=== PATIENT | female | born 1995 | race Caucasian/White ===

== ENCOUNTER 2019-10-22 21:34 | Emergency (ER) | payer MEDICAID, OTHER ==
--- NOTE | 2019-10-22 22:55 | RAD REPORT ---
EXAM DESCRIPTION: RAD - Chest Single View - 10/22/2019 10:18 pm CLINICAL HISTORY: SOB Chest pain. COMPARISON: CHEST PA AND LAT 2 VIEW dated 02/16/2015; CHEST SINGLE VIEW dated 11/19/2014; ABDOMEN ACU TE SERIES dated 10/06/2002 FINDINGS: Portable technique limits examination quality. The lungs are grossly clear. The heart is normal in size. No displaced fractures. IMPRESSION: No acute intrathoracic process suspected.
[2019-10-22] MEDS ORDERED: ALBUTEROL 2.5 MG/3 ML NEB SOL ONE (23:22)
[2019-10-22] MEDS ORDERED: IPRATROPIUM BROM 0.5MG/2.5ML ONE (23:23)
--- NOTE | 2019-10-23 00:25 | ER ---
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 In the past few days I have not been feeling well, but tonight, I feel like my heart racing, I feel shaky and short of breath. Reports low grade fever, nausea, diarrhea and headaches in the past few days. Transition of care: patient was not received from another setting of care. Onset of symptoms was October 22, 2019. Risk Assessment: Do you want to hurt yourself or someone else? Patient reports no desire to harm self or others. Initial Sepsis Screen: Does the patient meet any 2 criteria? No. Patient's initial sepsis screen is negative. Does the patient have a suspected source of infection? No. Patient's initial sepsis screen is negative. Care prior to arrival: None. 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 - Social history:: Smoking status: Patient uses tobacco products, denies chronic smoking, but will smoke occasionally, Patient uses street drugs, marijuana. - Ebola Screening: : Patient negative for fever greater than or equal to 101.5 degrees Fahrenheit, and additional compatible Ebola Virus Disease symptoms Patient denies exposure to infectious person Patient denies travel to an Ebola-affected area in the 21 days before illness onset No symptoms or risks identified at this time. Screenin:00 Abuse screen: Denies threats or abuse. Nutritional screening: No deficits noted. jb4 Tuberculosis screening: No symptoms or risk factors identified. Fall Risk None identified. Assessment: 22:00 General: Appears in no apparent distress. uncomfortable, Behavior is calm, cooperative, jb4 appropriate for age. Pain: Denies pain. Neuro: Level of Consciousness is awake, alert, obeys commands, Oriented to person, place, time, situation. Cardiovascular: Patient's skin is warm and dry. Respiratory: Airway is patent Respiratory effort is even, unlabored, Respiratory pattern is regular, symmetrical, Breath sounds are clear bilaterally. GI: No signs and/or symptoms were reported involving the gastrointestinal system. : No signs and/or symptoms were reported regarding the genitourinary system. EENT: Throat is clear is reddened. Derm: Skin is intact, Skin is pink, warm \T\ dry. Musculoskeletal: Circulation, motion, and sensation intact. 23:00 Reassessment: Patient appears in no apparent distress at this time. Patient and/or jb4 family updated on plan of care and expected duration. Pain level reassessed. Patient is alert, oriented x 3, equal unlabored respirations, skin warm/dry/pink. 10/23 00:36 Reassessment: Patient appears in no apparent distress at this time. Patient and/or jb4 family updated on plan of care and expected duration. Pain level reassessed. Patient is alert, oriented x 3, equal unlabored respirations, skin warm/dry/pink. Patient states feeling better. Vital Signs: 10/22 21:56 BP 137 / 76; Pulse 102; Resp 17 S; Temp 98.2(O); Pulse Ox 100% on R/A; Weight 54.43 kg; ca1 Height 5 ft. 1 in. (154.94 cm) (R); Pain 6/10; 22:04 BP 113 / 69; Pulse 83; Resp 16; Temp 98.6(O); Pulse Ox 99% on R/A; mt 23:30 BP 109 / 64; Pulse 71; Resp 16; Pulse Ox 100% on R/A; jb4 10/23 00:30 BP 96 / 50; Pulse 98; Resp 18; Pulse Ox 100% on R/A; jb4 10/22 21:56 Body Mass Index 22.67 (54.43 kg, 154.94 cm) ca1 ED Course: 10/22 21:37 Patient arrived in ED. cl3 21:55 Triage completed. ca1 21:56 Arm band placed on right wrist. ca1 22:00 Patient has correct armband on for positive identification. Bed in low position. Call jb4 light in reach. Side rails up X 1. 22:05 Tremayne Johns MD is Attending Physician. tw4 22:19 Chest Single View In Process Unspecified. EDMS 23:19 Franklni Jacobs, RN is Primary Nurse. jb4 12 00:38 No provider procedures requiring assistance completed. Patient did not have IV access jb4 during this emergency room visit. Administered Medications: 10/22 23:30 Drug: DuoNeb (3:1) (2.5 mg - 0.5 mg) 3 ml Route: Nebulizer; jb4 10/23 00:00 Follow up: Response: No adverse reaction; Marked relief of symptoms jb4 Outcome: 00:24 Discharge ordered by . tw4 00:38 Discharged to home ambulatory, with significant other. jb4 00:38 Condition: stable 00:38 Discharge instructions given to patient, significant other, Instructed on discharge instructions, follow up and referral plans. medication usage, Demonstrated understanding of instructions, follow-up care, medications, Prescriptions given X 1. 00:39 Patient left the ED. jb4 Signatures: Dispatcher [employer] EDTN Franklin Jacobs, HERON RN jb4 Arlen Guerrero de Tremayne Johns MD MD tw4 Pam Michel RN RN ca1 Tae Laughlin cl3
--- NOTE | 2019-10-23 00:25 | EDPHYS ---
Physician Documentation [facility] Name: Mabel Galloway Age: 24 yrs Sex: Female : 1995 Arrival Date: 10/22/2019 Time: 21:37 Bed 15 Private MD: ED Physician Tremayne Johns HPI: 10/23 06:42 This 24 yrs old Female presents to ER via Ambulatory with complaints of tw4 Shortness Of Breath, Fever. 06:42 The patient has shortness of breath at rest. Onset: The symptoms/episode began/occurred tw4 today. Duration: The symptoms are continuous, and are unchanged since they started. The patient's shortness of breath has no apparent modifying factors. Associated signs and symptoms: The patient has no apparent associated signs or symptoms. Severity of symptoms: At their worst the symptoms were mild in the emergency department the symptoms are unchanged. The patient has not experienced similar symptoms in the past. 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 - Social history:: Smoking status: Patient uses tobacco products, denies chronic smoking, but will smoke occasionally, Patient uses street drugs, marijuana. - Ebola Screening: : Patient negative for fever greater than or equal to 101.5 degrees Fahrenheit, and additional compatible Ebola Virus Disease symptoms Patient denies exposure to infectious person Patient denies travel to an Ebola-affected area in the 21 days before illness onset No symptoms or risks identified at this time. ROS: 10/23 06:42 Constitutional: Negative for fever, chills, and weight loss, Eyes: Negative for injury, tw4 pain, redness, and discharge, Cardiovascular: Negative for chest pain, palpitations, and edema, Abdomen/GI: Negative for abdominal pain, nausea, vomiting, diarrhea, and constipation, Back: Negative for injury and pain, MS/Extremity: Negative for injury and deformity, Skin: Negative for injury, rash, and discoloration, Neuro: Negative for headache, weakness, numbness, tingling, and seizure. Respiratory: Positive for cough, shortness of breath. Exam: 06:42 Constitutional: This is a well developed, well nourished patient who is awake, alert, tw4 and in no acute distress. Head/Face: Normocephalic, atraumatic. Chest/axilla: Normal chest wall appearance and motion. Nontender with no deformity. No lesions are appreciated. Cardiovascular: Regular rate and rhythm with a normal S1 and S2. No gallops, murmurs, or rubs. Normal PMI, no JVD. No pulse deficits. 06:42 Abdomen/GI: Soft, non-tender, with normal bowel sounds. No distension or tympany. No guarding or rebound. No evidence of tenderness throughout. Back: No spinal tenderness. No costovertebral tenderness. Full range of motion. MS/ Extremity: Pulses equal, no cyanosis. Neurovascular intact. Full, normal range of motion. Neuro: Awake and alert, GCS 15, oriented to person, place, time, and situation. Cranial nerves II-XII grossly intact. Motor strength 5/5 in all extremities. Sensory grossly intact. Cerebellar exam normal. Normal gait. 06:42 Respiratory: the patient does not display signs of respiratory distress, Respirations: normal, Breath sounds: wheezing: Vital Signs: 10/22 21:56 BP 137 / 76; Pulse 102; Resp 17 S; Temp 98.2(O); Pulse Ox 100% on R/A; Weight 54.43 kg; ca1 Height 5 ft. 1 in. (154.94 cm) (R); Pain 6/10; 22:04 BP 113 / 69; Pulse 83; Resp 16; Temp 98.6(O); Pulse Ox 99% on R/A; mt 23:30 BP 109 / 64; Pulse 71; Resp 16; Pulse Ox 100% on R/A; jb4 10/23 00:30 BP 96 / 50; Pulse 98; Resp 18; Pulse Ox 100% on R/A; jb4 10/22 21:56 Body Mass Index 22.67 (54.43 kg, 154.94 cm) ca1 MDM: 10/22 22:05 Patient medically screened. tw4 10/23 06:42 Differential diagnosis: CHF exacerbation, pneumonia, Pneumothorax Psychogenic Pulmonary tw4 Embolism reactive airway disease. Data reviewed: vital signs, nurses notes. Counseling: I had a detailed discussion with the patient and/or guardian regarding: the historical points, exam findings, and any diagnostic results supporting the discharge/admit diagnosis. Medication response: albuterol nebulizer treatment(s) markedly relieved the patient's wheezing. Response to treatment: the patient's symptoms have markedly improved after treatment, and as a result, I will discharge patient. Special discussion: I discussed with the patient/guardian in detail that at this point there is no indication for admission to the hospital. It is understood, however, that if the symptoms persist or worsen the patient needs to return immediately for re-evaluation. 10/22 22:16 Order name: Chest Single View EDMS Administered Medications: 10/22 23:30 Drug: DuoNeb (3:1) (2.5 mg - 0.5 mg) 3 ml Route: Nebulizer; jb4 10/23 00:00 Follow up: Response: No adverse reaction; Marked relief of symptoms jb4 Disposition: 10/23/19 00:24 Discharged to Home. Impression: Acute bronchospasm. - Condition is Stable. - Discharge Instructions: Bronchospasm, Adult, Asthma, Acute Bronchospasm. - Prescriptions for Albuterol Sulfate 2.5 mg /3 mL (0.083 %) Inhalation Solution for Nebulization - inhale 1 unit by NEBULIZATION route every 8 hours As needed; 1 box. - Medication Reconciliation Form, Thank You Letter, Antibiotic Education, Prescription Opioid Use form. - Follow up: Private Physician; When: Upon discharge from the Emergency Department; Reason: Recheck today's complaints, Continuance of care. - Problem is new. - Symptoms have improved. Signatures: Dispatcher [employer] EDNV Franklin Jacobs RN RN jb4 Tremayne Johns MD MD tw4 Pam Michel RN RN ca1 Corrections: (The following items were deleted from the chart) 00:39 00:24 10/23/2019 00:24 Discharged to Home. Impression: Acute bronchospasm. Condition is jb4 Stable. Forms are Medication Reconciliation Form, Thank You Letter, Antibiotic Education, Prescription Opioid Use. Follow up: Private Physician; When: Upon discharge from the Emergency Department; Reason: Recheck today's complaints, Continuance of care. Problem is new. Symptoms have improved. tw4
[2019-10-23 04:17] VITALS: TEMP 98.6
[2019-10-23 04:18] VITALS: O2SAT 100
[2019-10-23 04:20] VITALS: BP 96/50
== END 2019-10-23 00:39 | disposition home or self-care (01) ==
LOC: ER 21:34
DX: J98.01 Acute bronchospasm (principal)
CPT/HCPCS: 71045; 94640; 99284

== ENCOUNTER 2021-09-17 17:59 | Emergency (ER) | payer OTHER ==
[2021-09-17 20:58] LABS: Urine Blood Negative (Negative); Urine Glucose Negative (Negative); Urine Protein Negative (Negative); Urine Specific Gravity 1.025 (1.005-1.030)
[2021-09-17 21:10] LABS: Absolute Lymphocytes (CBC) 2.1 K/uL (0.7-4.9); Basophils % 0.9 % (0-1.3); Hematocrit 38.6 % (36.0-45.0); Lymphocytes % 23.6 % (15.3-44.8); MPV 8.9 fL (7.6-11.3); RBC Red Blood Cell Count 4.48 M/uL (3.86-4.86)
[2021-09-17 21:12] LABS: Urine Specific Gravity/Preg 1.025 (1.005-1.030)
[2021-09-17] MEDS ORDERED: ONDANSETRON 4 MG/2 ML VIAL ONE (21:20)
[2021-09-17] MEDS ORDERED: NA CHLORIDE 0.9% 1,000 ML ONE (21:20)
[2021-09-17 21:35] LABS: ALT/SGPT 12 U/L (12-78); AST/SGOT 12 U/L (15-37); Alkaline Phosphatase 68 U/L (45-117); BUN Blood Urea Nitrogen 10 mg/dL (7-18); Bicarbonate 27 mmol/L (21-32); Bilirubin Direct 0.1 mg/dL (0-0.2); Bilirubin Total 0.4 mg/dL (0.2-1.0); Glucose Level 86 mg/dL (74-106); Lipase 48 U/L (73-393); Potassium 3.5 mmol/L (3.5-5.1); Protein, Total 7.4 g/dL (6.4-8.2); Sodium Level 142 mmol/L (136-145)
--- NOTE | 2021-09-17 23:08 | ER ---
Nurse's Notes [facility] Name: Mabel Galloway Age: 26 yrs Sex: Female : 1995 Arrival Date: 09/17/2021 Time: 18:03 Bed 16 Private MD: Diagnosis: Lower abdominal pain, unspecified;Nausea with vomiting, unspecified;Other ovarian cysts Presentation: 09/17 18:11 Chief complaint: Patient states: Nausea morning and night x 5 days. RLQ ABD pain ch5 yesterday. Coronavirus screen: Vaccine status: Patient reports being unvaccinated. Ebola Screen: Patient negative for fever greater than or equal to 101.5 degrees Fahrenheit, and additional compatible Ebola Virus Disease symptoms Patient denies exposure to infectious person. Patient denies travel to an Ebola-affected area in the 21 days before illness onset. No symptoms or risks identified at this time. 18:11 Method Of Arrival: Ambulatory 5 18:11 Initial Sepsis Screen: Does the patient meet any 2 criteria? No. Patient's initial ch5 sepsis screen is negative. Does the patient have a suspected source of infection? No. Patient's initial sepsis screen is negative. Risk Assessment: Do you want to hurt yourself or someone else?. Onset of symptoms was September 12, 2021. 18:11 Acuity: DAVID 3 ch5 Triage Assessment: 18:13 General: Appears in no apparent distress. Behavior is calm, cooperative. Pain: Denies ch5 pain. Complains of pain in right lower quadrant and left lower quadrant. 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 - Social history:: Smoking status: Patient reports the use of cigarette tobacco products, smokes one-half pack cigarettes per day. Screenin:30 Abuse screen: Denies threats or abuse. Denies injuries from another. Nutritional dc2 screening: No deficits noted. Tuberculosis screening: No symptoms or risk factors identified. Fall Risk None identified. No fall in past 12 months (0 pts). No secondary diagnosis (0 pts). No IV (0 pts). Ambulatory Aid- None/Bed Rest/Nurse Assist (0 pts). Gait- Normal/Bed Rest/Wheelchair (0 pts) Mental Status- Oriented to own ability (0 pts). Total Alvarado Fall Scale indicates No Risk (0-24 pts). Assessment: 20:30 General: Appears in no apparent distress. comfortable, slender, well groomed, well dc2 developed, Behavior is calm, cooperative. Pain: Denies pain. Neuro: No deficits noted. Level of Consciousness is awake, alert, obeys commands, Oriented to person, place, time, situation. Cardiovascular: Denies chest pain, nausea, shortness of breath. Respiratory: No deficits noted. Breath sounds are clear bilaterally. GI: Bowel sounds present X 4 quads. Reports nausea, States will have pain to both lower quadrants " once in a while" Denies pain at this time. Patient currently denies vomiting. 20:30 : No deficits noted. No signs and/or symptoms were reported regarding the dc2 genitourinary system. Urine is clear. Derm: No deficits noted. No signs and/or symptoms reported regarding the dermatologic system. Musculoskeletal: No deficits noted. No signs and/or symptoms reported regarding the musculoskeletal system. Vital Signs: 18:11 BP 143 / 92; Pulse 93; Resp 18; Temp 98.4; Pulse Ox 100% ; Weight 58.97 kg; Height 5 ch5 ft. 1 in. (154.94 cm); Pain 0/10; 20:30 BP 117 / 77; Pulse 79; Resp 79; Temp 97.6(O); Pulse Ox 100% ; Pain 0/10; dc2 21:30 BP 111 / 72; Pulse 76; Resp 16; Pulse Ox 100% ; Pain 0/10; dc2 22:30 BP 122 / 69; Pulse 75; Resp 17; Pulse Ox 99% ; Pain 0/10; dc2 23:00 BP 114 / 68; Pulse 71; Resp 16; Temp 97.5; Pulse Ox 100% ; Pain 0/10; dc2 18:11 Body Mass Index 24.56 (58.97 kg, 154.94 cm) 5 ED Course: 18:03 Patient arrived in ED. ds1 18:13 Triage completed. ch5 18:13 Arm band placed on right wrist. ch5 19:59 Humberto Gil MD is Attending Physician. 7 20:30 Patient has correct armband on for positive identification. Placed in gown. Bed in low dc2 position. Call light in reach. Side rails up X 1. clinical research monitor on. Pulse ox on. NIBP on. Door closed. Lights dimmed. 20:42 Susu Desai, HERON is Primary Nurse. dc2 21:00 Basic Metabolic Panel Sent. dc2 21:00 CBC with Diff Sent. dc2 21:00 Hepatic Function Sent. dc2 21:01 Lipase Sent. dc2 21:09 Urine --Ancillary (enter results) Sent. dc2 21:13 No provider procedures requiring assistance completed. dc2 21:[address] dc2 22:04 CT Abd/Pelvis - IV Contrast Only In Process Unspecified. EDMS 22:06 [address] back from [address]. dc2 23:09 Yanique Ludwig MD is Referral Physician. [facility] 23:15 IV discontinued, intact, bleeding controlled, No redness/swelling at site. Pressure dc2 dressing applied. Administered Medications: 20:50 Drug: NS 0.9% 1000 ml Route: IV; Rate: 1000 ml; Site: left antecubital; dc2 22:00 Follow up: IV Status: Completed infusion; IV Intake: 1000ml dc2 20:51 Drug: Zofran (Ondansetron) 4 mg Route: IVP; Site: left antecubital; dc2 21:30 Follow up: Response: Nausea is decreased dc2 Intake: 22:00 IV: 1000ml; Total: 1000ml. dc2 Outcome: 23:07 Discharge ordered by . [facility] 23:16 Discharged to home ambulatory. dc2 23:16 Condition: stable 23:16 Discharge instructions given to patient, Instructed on discharge instructions, follow up and referral plans. Demonstrated understanding of instructions, follow-up care, medications, Prescriptions given X 2. 23:49 Patient left the ED. dc2 Signatures: Dispatcher [employer] [facility] Margaret Haddad ds1 Humberto Gil MD MD [facility] Thierno Thomas RN RN 5 Susu Desai RN RN dc2
--- NOTE | 2021-09-17 23:08 | EDPHYS ---
Physician Documentation [facility] Name: Mabel Galloway Age: 26 yrs Sex: Female : 1995 Arrival Date: 09/17/2021 Time: 18:03 Bed 16 Private MD: ED Physician Humberto Gil HPI: 09/17 20:11 This 26 yrs old Female presents to ER via Ambulatory with complaints of mh7 Nausea. 20:11 The patient presents to the emergency department with nausea, that is moderate, mh7 vomiting, that is intermittent, described as clear fluid, abdominal pain, of the right lower quadrant and left lower quadrant, described as intermittent, vague,\E\ waxing and waning, and does not radiate. Onset: The symptoms/episode began/occurred 5 day(s) ago. Possible causes: unknown. The symptoms are aggravated by food , The symptoms are alleviated by nothing. Associated signs and symptoms: Pertinent negatives: anorexia, belching, constipation, diarrhea, dysuria, fever, flatulence, GI bleeding, hematuria, vaginal discharge. Severity of symptoms: At their worst the symptoms were moderate 3 day(s) ago, in the emergency department the symptoms have improved moderately. 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 - Social history:: Smoking status: Patient reports the use of cigarette tobacco products, smokes one-half pack cigarettes per day. ROS: 20:11 Constitutional: Negative for fever, chills, and weight loss, Eyes: Negative for injury, mh7 pain, redness, and discharge, ENT: Negative for injury, pain, and discharge, Neck: Negative for injury, pain, and swelling, Cardiovascular: Negative for chest pain, palpitations, and edema, Respiratory: Negative for shortness of breath, cough, wheezing, and pleuritic chest pain, Back: Negative for injury and pain, : Negative for injury, bleeding, discharge, and swelling, MS/Extremity: Negative for injury and deformity, Skin: Negative for injury, rash, and discoloration, Neuro: Negative for headache, weakness, numbness, tingling, and seizure, Psych: Negative for depression, anxiety, suicide ideation, homicidal ideation, and hallucinations, Allergy/Immunology: Negative for hives, rash, and allergies, Endocrine: Negative for neck swelling, polydipsia, polyuria, polyphagia, and marked weight changes, Hematologic/Lymphatic: Negative for swollen nodes, abnormal bleeding, and unusual bruising. Exam: 20:11 Constitutional: This is a well developed, well nourished patient who is awake, alert, mh7 and in no acute distress. Head/Face: Normocephalic, atraumatic. Eyes: Pupils equal round and reactive to light, extra-ocular motions intact. Lids and lashes normal. Conjunctiva and sclera are non-icteric and not injected. Cornea within normal limits. Periorbital areas with no swelling, redness, or edema. Neck: Trachea midline, no thyromegaly or masses palpated, and no cervical lymphadenopathy. Supple, full range of motion without nuchal rigidity, or vertebral point tenderness. No Meningismus. Chest/axilla: Normal chest wall appearance and motion. Nontender with no deformity. No lesions are appreciated. Cardiovascular: Regular rate and rhythm with a normal S1 and S2. No gallops, murmurs, or rubs. Normal PMI, no JVD. No pulse deficits. Respiratory: Lungs have equal breath sounds bilaterally, clear to auscultation and percussion. No rales, rhonchi or wheezes noted. No increased work of breathing, no retractions or nasal flaring. Back: No spinal tenderness. No costovertebral tenderness. Full range of motion. Skin: Warm, dry with normal turgor. Normal color with no rashes, no lesions, and no evidence of cellulitis. MS/ Extremity: Pulses equal, no cyanosis. Neurovascular intact. Full, normal range of motion. Neuro: Awake and alert, GCS 15, oriented to person, place, time, and situation. Cranial nerves II-XII grossly intact. Motor strength 5/5 in all extremities. Sensory grossly intact. Cerebellar exam normal. Normal gait. Psych: Awake, alert, with orientation to person, place and time. Behavior, mood, and affect are within normal limits. 20:11 Abdomen/GI: Inspection: abdomen appears normal, Bowel sounds: normal, in all quadrants, [facility] Palpation: mild abdominal tenderness, in the right lower quadrant and left lower quadrant, mass, is not appreciated, rebound tenderness, is not appreciated, voluntary guarding, is not appreciated, involuntary guarding, is not appreciated, no appreciated organomegaly, Rectal exam: the exam is deferred, because of patient request, Indicators: McBurney's point is not tender, Guadalupe's sign is negative, Rovsing's sign is negative, Obturator sign is negative, Psoas sign is negative, Liver: no appreciated palpable abnormalities, Hernia: not appreciated. 20:11 : CVA tenderness, is absent, Pelvic Exam: The exam is refused by the [facility] patient/guardian. The risks and consequences are understood by the patient. Vital Signs: 18:11 BP 143 / 92; Pulse 93; Resp 18; Temp 98.4; Pulse Ox 100% ; Weight 58.97 kg; Height 5 ch5 ft. 1 in. (154.94 cm); Pain 0/10; 20:30 BP 117 / 77; Pulse 79; Resp 79; Temp 97.6(O); Pulse Ox 100% ; Pain 0/10; dc2 21:30 BP 111 / 72; Pulse 76; Resp 16; Pulse Ox 100% ; Pain 0/10; dc2 22:30 BP 122 / 69; Pulse 75; Resp 17; Pulse Ox 99% ; Pain 0/10; dc2 23:00 BP 114 / 68; Pulse 71; Resp 16; Temp 97.5; Pulse Ox 100% ; Pain 0/10; dc2 18:11 Body Mass Index 24.56 (58.97 kg, 154.94 cm) [facility] MDM: 23:05 Differential diagnosis: Nonspecific abd pain, gastritis, appendicitis, diverticulitis. [facility] Data reviewed: vital signs, nurses notes, lab test result(s), CBC, electrolytes, urinalysis, UPT: negative radiologic studies, CT scan. Data interpreted: Pulse oximetry: on room air is 100 %. Interpretation: normal. Counseling: I had a detailed discussion with the patient and/or guardian regarding: the historical points, exam findings, and any diagnostic results supporting the discharge/admit diagnosis, lab results, radiology results, the need for outpatient follow up, to return to the emergency department if symptoms worsen or persist or if there are any questions or concerns that arise at home. Response to treatment: the patient's symptoms have resolved after treatment, the patient's blood pressure is in an acceptable range, mental status has returned to baseline, the patient no longer shows bradycardia, the patient is not short of breath, the patient is not tachycardic, the patient's pain is gone, the patient's temperature has normalized, the patient is now symptom free, patient is well hydrated. 23:07 Patient medically screened. [facility] 09/17 20:09 Order name: Basic Metabolic Panel; Complete Time: 22:53 [facility] 09/17 20:09 Order name: CBC with Diff; Complete Time: 21:26 [facility] 09/17 20:09 Order name: Hepatic Function; Complete Time: 22:53 [facility] 09/17 20:09 Order name: Lipase; Complete Time: 22:53 [facility] 09/17 20:58 Order name: Urine Dipstick-Ancillary; Complete Time: 21:26 [facility] 09/17 20:59 Order name: Urine --Ancillary (enter results) tt3 09/17 20:09 Order name: IV Saline Lock; Complete Time: 21:00 [facility] 09/17 20:09 Order name: Labs collected and sent; Complete Time: 21:00 [facility] 09/17 20:09 Order name: Urine Dipstick-Ancillary (obtain specimen); Complete Time: 20:58 [facility] 09/17 20:09 Order name: Urine Test (obtain specimen); Complete Time: 20:58 [facility] 09/17 20:59 Order name: Urine --Ancillary; Complete Time: 21:26 [facility] 09/17 21:27 Order name: CT Abd/Pelvis - IV Contrast Only [facility] Administered Medications: 20:50 Drug: NS 0.9% 1000 ml Route: IV; Rate: 1000 ml; Site: left antecubital; dc2 22:00 Follow up: IV Status: Completed infusion; IV Intake: 1000ml dc2 20:51 Drug: Zofran (Ondansetron) 4 mg Route: IVP; Site: left antecubital; dc2 21:30 Follow up: Response: Nausea is decreased dc2 Disposition Summary: 09/17/21 23:07 Discharge Ordered Location: Home [facility] Problem: new [facility] Symptoms: have improved [facility] Condition: Stable [facility] Diagnosis - Lower abdominal pain, unspecified 7 - Nausea with vomiting, unspecified 7 - Other ovarian cysts [facility] Followup: [facility] - With: Private Physician - When: 1 - 2 days - Reason: Worsening of condition, Recheck today's complaints, Continuance of care, Re-evaluation by your physician Followup: [facility] - With: Yanique Ludwig MD - When: 2 - 3 days - Reason: Worsening of condition, Recheck today's complaints Discharge Instructions: - Discharge Summary Sheet [facility] - Nausea and Vomiting, Adult [facility] - Abdominal Pain, Adult, Bkns-ti-[id number] [facility] Forms: - Medication Reconciliation Form [facility] - Thank You Letter [facility] - Antibiotic Education [facility] - Prescription Opioid Use [facility] Prescriptions: - ondansetron 4 mg Oral tablet,disintegrating - place 1 tablet by TRANSLINGUAL route every 8 hours As needed; 10 tablet; [facility] Refills: 0, Product Selection Permitted - dicyclomine 10 mg Oral Capsule - take 1 capsule by ORAL route 4 times per day As needed; 20 capsule; Refills: 0, 7 Product Selection Permitted Signatures: Dispatcher [employer] Humberto Varghese MD MD 7 Thierno Thomas RN RN ch5 Susu Desai RN RN dc2
[2021-09-18 00:06] VITALS: BP 114/68; TEMP 97.5; O2SAT 100
--- NOTE | 2021-09-18 12:32 | RAD REPORT ---
EXAM DESCRIPTION: CT - Abdomen Pelvis W Contrast - 09/18/2021 6:33 am CLINICAL HISTORY: The patient is 26 years old and is Female; Abd pain;Nausea / vomiting TECHNIQUE: Axial computed tomography images of the abdomen and pelvis with intravenous contrast. S agittal and coronal reformatted images were created and reviewed. This CT exam was performed using one or more of the following dose reduction techniques: automated exposure control, adjustment of t he mA and/or kV according to patient size, and/or use of iterative reconstruction technique. DLP: 873 mGy*cm COMPARISON: None. FINDINGS: LUNG BASES: Lung bases are clear. HEART: Visualized heart is normal. ABDOMEN: LIVER: Unremarkable. No mass. GALLBLADDER AND BILE DUCTS: Unremarkable. No calcified stones. No ductal dilation. PANCREAS: Unremarkable. No mass. No ductal dilation. SPLEEN: Unremarkable. No splenomegaly. ADRENALS: Unremarkable. No mass. KIDNEYS AND URETERS: Unremarkable. No solid mass. No hydronephrosis. STOMACH AND BOWEL: Unremarkable. No obstruction. No mucosal thickening. PELVIS: APPENDIX: The appendix is seen and is within normal limits. BLADDER: Unremarkable. No mass. REPRODUCTIVE: Right ovarian cyst measuring 1.4 cm. Small amount of endometrial fluid. ABDOMEN and PELVIS: INTRAPERITONEAL SPACE: Unremarkable. No free air. No significant fluid collection. BONES/JOINTS: No acute fracture. No dislocation. SOFT TISSUES: Small fat-containing lumbrical hernia. VASCULATURE: Unremarkable. No abdominal aortic aneurysm. LYMPH NODES: Unremarkable. No enlarged lymph nodes. IMPRESSION: 1. No acute abdominal or pelvic abnormity. 2. Right ovarian cyst measuring 1.4 cm. Small amount of endometrial fluid. No follow-up imaging is recommended. Reference: US recommendations based on Radiology 2010 Jul;256(3):943-54; CT/MR recommendations based on J Am Linnea Radiol 2013;10:675-681. Electronically signed by: Manolo Cano DO 09/17/2021 10:33 PM CDT Due to temporary technical issues with the PACS/Fluency reporting system, reports are being signed by the in house radiologists without review as a courtesy to insure prompt reporting. The interpreting radiologist is fully responsible for the content of the report.
== END 2021-09-17 23:49 | disposition home or self-care (01) ==
LOC: ER 17:59
DX: N83.299 Other ovarian cyst, unspecified side (principal); R11.2 Nausea with vomiting, unspecified; F17.210 Nicotine dependence, cigarettes, uncomplicated
CPT/HCPCS: 96361; 85025; 80048; 36415; 81025; 80076; 81003; 83690; 74177; 96374; 99285; Q9967; J7030; J2405

== ENCOUNTER 2021-12-31 11:14 | Emergency (ER) | payer OTHER ==
--- OUTSIDE RECORDS SUMMARY | 2021-12-31 11:33 | XMS REPORT | Continuity of Care Document ---
:1995 Author Organization [facility] t Address [address] [place] [address] Dr. Plasencia [address] [place] [id number] Care Team Providers Name Role Phone Unavailable Unavailable Unavailable Problems This patient has no known problems. Allergies, Adverse Reactions, Alerts This patient has no known allergies or adverse reactions. Medications This patient has no known medications. Procedures This patient has no known procedures. Results This patient has no known results.
[2021-12-31] MEDS ORDERED: LIDOCAINE 2% W/EPI 1:200,000 MPF 20 ML VIAL IM ONE (11:46)
[2021-12-31] MEDS ORDERED: BUPIVACAINE 0.5% PF 10 ML VIAL ONE (11:46)
[2021-12-31] MEDS ORDERED: LIDOCAINE 1% W/EPI 1:100,000 MDV 50 ML VIAL ONE (11:48)
--- NOTE | 2021-12-31 12:33 | EDPHYS ---
Physician Documentation [facility] Name: Mabel Galloway Age: 26 yrs Sex: Female : 1995 Arrival Date: 12/31/2021 Time: 11:17 Bed 6 Private MD: ED Physician Pricilla Mcclain HPI: 12/31 11:45 This 26 yrs old Female presents to ER via Ambulatory with complaints of Cyst. cp 11:45 The patient presents with an abscess of the left arm axilla. cp 11:45 Description: fluctuant. cp 11:45 Onset: The symptoms/episode began/occurred gradually, and became worse last night. cp 11:45 Possible cause(s): unknown. Associated signs and symptoms: Pertinent negatives: cp discharge, drainage, fever. 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 Flu vaccine is not up to date. - Social history:: Smoking status: Patient reports the use of cigarette tobacco products, smokes one-half pack cigarettes per day. ROS: 11:50 Constitutional: Negative for body aches, chills, fever, poor PO intake. cp 11:50 Cardiovascular: Negative for chest pain. cp 11:50 Respiratory: Negative for cough, shortness of breath, wheezing. 11:50 Abdomen/GI: Negative for abdominal pain. 11:50 Skin: Positive for abscess, of the left arm axilla. 11:50 All other systems are negative. Exam: 11:55 Constitutional: The patient appears in no acute distress, alert, awake, comfortable, cp non-toxic, well developed, well nourished. 11:55 Head/Face: Normocephalic, atraumatic. cp 11:55 Chest/axilla: Axilla: abscess, that is small, of the left axilla, with tenderness, mils erythema. 11:55 Cardiovascular: Rate: tachycardic. 11:55 Respiratory: the patient does not display signs of respiratory distress, Respirations: normal, no use of accessory muscles, no retractions, labored breathing, is not present. 11:55 Abdomen/GI: Exam negative for discomfort, distension, guarding, Inspection: abdomen appears normal. Vital Signs: 11:26 BP 121 / 81; Pulse 106; Resp 17; Temp 98.3; Pulse Ox 100% ; Weight 58.97 kg; Height 5 ap3 ft. 1 in. (154.94 cm); Pain 5/10; 11:26 Body Mass Index 24.56 (58.97 kg, 154.94 cm) ap3 Procedures: 12:29 I \T\ D: Incision and drainage was performed for an abscess of the left arm axilla cp Prepped with Betadine, Anesthetized with 6 ccs of 50/50 mixture 1% lidocaine with epi and 0.5% marcaine. Incised with #11 blade. Drained small amount purulent fluid. Packed with iodoform gauze, Dressing: sterile 4x4 gauze, the patient tolerated the procedure well. MDM: 11:47 Patient medically screened. cp 12:00 Differential diagnosis: abscess, allergic reaction, cellulitis, insect bite. cp 12:31 Data reviewed: vital signs, nurses notes, and as a result, I will discharge patient. cp Response to treatment: the patient's symptoms have markedly improved after treatment, and as a result, I will discharge patient. 12/31 11:41 Order name: I\T\D Setup; Complete Time: 11:41 cp 12/31 12:29 Order name: Wound dressing; Complete Time: 12:30 cp Administered Medications: 12:12 Drug: Lidocaine-Epinephrine -1%: (1:100,000) 10 ml Volume: 20 ml; Route: Infiltration; ll1 12:34 Follow up: Response: No adverse reaction ll1 12:12 Drug: Marcaine (bupivacaine) (0.5 %) 5 ml Volume: 10 ml; Route: Infiltration; ll1 12:34 Follow up: Response: No adverse reaction ll1 Disposition Summary: 12/31/21 12:32 Discharge Ordered Location: Home cp Problem: new cp Symptoms: have improved cp Condition: Stable cp Diagnosis - Cutaneous abscess of left axilla - left arm cp Followup: cp - With: Private Physician - When: 1 - 2 days - Reason: Worsening of condition Discharge Instructions: - Discharge Summary Sheet cp - Skin Abscess cp - Incision and Drainage cp Forms: - Medication Reconciliation Form cp - Thank You Letter cp - Antibiotic Education cp - Prescription Opioid Use cp Prescriptions: - Bactrim DS 800-160 mg Oral Tablet - take 1 tablet by ORAL route every 12 hours for 7 days; 14 tablet; Refills: 0, cp Product Selection Permitted - Ibuprofen 600 mg Oral Tablet - take 1 tablet by ORAL route every 8 hours As needed take with food; 30 tablet; cp Refills: 0, Product Selection Permitted Addendum: 01/01/2022 12:49 Co-signature as Attending Physician, Pricilla Mcclain MD I agree with the assessment and s p3 plan of care. Signatures: Tony Hodges PA PA cp Prokisch, Amanda, RN RN ap3 Chris Laughlin RN RN ll1 Pricilla Mcclain MD MD sp3
--- NOTE | 2021-12-31 12:33 | ER ---
Nurse's Notes [facility] Name: Mabel Galloway Age: 26 yrs Sex: Female : 1995 Arrival Date: 12/31/2021 Time: 11:17 Bed 6 Private MD: Diagnosis: Cutaneous abscess of left axilla-left arm Presentation: 12/31 11:26 Chief complaint: Patient states: she has a cyst under her left arm. It has been there ap3 for several days, however last night it started to get to be painful, and it interrupted her sleep. Pt reports the size of the cyst has increased. Coronavirus screen: At this time, the client does not indicate any symptoms associated with coronavirus-19. Ebola Screen: No symptoms or risks identified at this time. Initial Sepsis Screen: Does the patient meet any 2 criteria? No. Patient's initial sepsis screen is negative. Does the patient have a suspected source of infection? No. Patient's initial sepsis screen is negative. Risk Assessment: Do you want to hurt yourself or someone else? Patient reports no desire to harm self or others. Onset of symptoms was December 30, 2021. 11:26 Method Of Arrival: Ambulatory ap3 11:26 Acuity: DAVID 4 ap3 Triage Assessment: 11:29 General: Appears in no apparent distress. comfortable, Behavior is calm, cooperative, ap3 appropriate for age. Pain: Complains of pain in left axilla Pain currently is 5 out of 10 on a pain scale. Neuro: Level of Consciousness is awake, alert, obeys commands, Oriented to person, place, time, situation, Diversity Intern are equal bilaterally Moves all extremities. Gait is steady, Speech is normal. Respiratory: Airway is patent Respiratory effort is even, unlabored, Respiratory pattern is regular, symmetrical. Derm: Abscess located on left axilla is half dollar sized, has no drainage, is red, is raised. 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 Flu vaccine is not up to date. - Social history:: Smoking status: Patient reports the use of cigarette tobacco products, smokes one-half pack cigarettes per day. Screenin:30 Abuse screen: Denies threats or abuse. Nutritional screening: No deficits noted. ap3 Tuberculosis screening: No symptoms or risk factors identified. Fall Risk No fall in past 12 months (0 pts). Assessment: 11:36 General: Appears in no apparent distress. comfortable, well developed, well nourished, lr4 Behavior is calm, cooperative. Pain: Complains of pain in left axilla Pain currently is 5 out of 10 on a pain scale. Quality of pain is described as aching, throbbing, Pain began gradually, Is chronic, Noted to be Also complains of no other associated symptoms. Current management. Derm: Abscess located on left axilla. 12:35 Reassessment: Patient appears in no apparent distress at this time. No changes from ll1 previously documented assessment. Patient and/or family updated on plan of care and expected duration. Pain level reassessed. Patient is alert, oriented x 3, equal unlabored respirations, skin warm/dry/pink. Patient states feeling better. Patient states symptoms have improved. Vital Signs: 11:26 BP 121 / 81; Pulse 106; Resp 17; Temp 98.3; Pulse Ox 100% ; Weight 58.97 kg; Height 5 ap3 ft. 1 in. (154.94 cm); Pain 5/10; 11:26 Body Mass Index 24.56 (58.97 kg, 154.94 cm) ap3 ED Course: 11:17 Patient arrived in ED. as 11:28 Triage completed. ap3 11:30 Arm band placed on left wrist. ap3 11:31 Tony Hodges PA is PHCP. cp 11:31 Pricilla Mcclain MD is Attending Physician. cp 11:33 Chris Laughiln, HERON is Primary Nurse. ll1 11:33 Patient placed in an exam room, on a stretcher. ll1 11:33 Patient has correct armband on for positive identification. Bed in low position. Call ll1 light in reach. Side rails up X 1. Cardiac monitoring not applicable on this patient. 12:30 Dressings: 4X4s X 1; left axilla secured with paper tape. Tolerated procedure well. ll1 12:41 No provider procedures requiring assistance completed. Patient did not have IV access ll1 during this emergency room visit. Administered Medications: 12:12 Drug: Lidocaine-Epinephrine -1%: (1:100,000) 10 ml Volume: 20 ml; Route: Infiltration; ll1 12:34 Follow up: Response: No adverse reaction ll1 12:12 Drug: Marcaine (bupivacaine) (0.5 %) 5 ml Volume: 10 ml; Route: Infiltration; ll1 12:34 Follow up: Response: No adverse reaction ll1 Outcome: 12:32 Discharge ordered by . aisha 12:41 Discharged to home ambulatory. ll1 12:41 Condition: stable 12:41 Discharge instructions given to patient, Instructed on discharge instructions, follow up and referral plans. medication usage, wound care, Demonstrated understanding of instructions, follow-up care, medications, wound care, Prescriptions given X 2. 12:42 Patient left the ED. ll1 Signatures: Jody Orellana Corey, PA PA cp Prokisch, Amanda, RN RN ap3 Chris Laughlin RN RN ll1 Fartun Turpin RN RN lr4
[2021-12-31 12:48] VITALS: BP 121/81; TEMP 98.3; O2SAT 100
== END 2021-12-31 12:42 | disposition home or self-care (01) ==
LOC: ER 11:14
PROC: 0H9CXZZ Drainage of Left Upper Arm Skin, External Approach (ICD-10-PCS; principal; 2021-12-31)
DX: L02.412 Cutaneous abscess of left axilla (principal); F17.210 Nicotine dependence, cigarettes, uncomplicated
CPT/HCPCS: 99283

== ENCOUNTER 2022-12-27 13:59 | Emergency (ER) | payer OTHER ==
--- OUTSIDE RECORDS SUMMARY | 2022-12-27 14:07 | XMS REPORT | Continuity of Care Document ---
:[address] [facility] t Address [address] [place] [address] Care Team Providers Name Role Phone HOMA CORLEY Primary Care Physician Unavailable Nurse, [facility] Attending Clinician Unavailable Alin Chapa MD Attending Clinician ALIN CHAPA Attending Clinician Unavailable Doctor Unassigned, [place] Attending Clinician Unavailable Lyn Basilio Attending Clinician Payers Payer Name Policy Type Policy Number Effective Date Expiration Date S ource Problems Condition Condition Condition Status Onset Resolution Last Treating Co mments Source Name Details Category Date Date Treatment Clinician Date Abscess of Abscess of Disease Active 2010-11 U nivers breast, breast[place] 0[place] [address] [place] [address] Pneumonia Pneumonia Disease Active 2010-11 Uni vers 0-16 ity of 00:00: [address] Allergies, Adverse Reactions, Alerts Allergy Allergy Status Severity Reaction(s) Onset Inactive Treating Comm ents Source Name Type Date Date Clinician NO KNOWN Drug Active Univers ALLERGIE Class ity of S [facility] Social History Social Habit Start Date Stop Date Quantity Comments Source Exposure to 2022-06-28 2022-07-08 Not sure University SARS-CoV-2 00:00:00 08:12:00 [facility] (event) Branch Alcohol intake 2022-07-08 2022-07-08 Current drinker Unive rsity of 00:00:00 00:00:00 of alcohol [facility] ([facility]) Branch Tobacco use and 2022-06-24 2022-06-24 Smokeless tobacco Un iversity of exposure 00:00:00 00:00:00 non-user [facility] History of 2019-10-22 Cigarette Smoker Universi ty of tobacco use 00:00:00 [facility] Sex [birth year] Universit y of 00:00:00 00:00:00 [facility] Smoking Status Start Date Stop Date Source Smokes tobacco daily 2022-06-24 00:00:00 [facility] ity of [facility] Medications Ordered Filled Start Stop Current Ordering Indication Dosage Frequency Signature Comments Components Source Medication Medication Date Date Medication? Clinician (SIG) Name Name HYDROcodone Yes 4647 1{tbl} Take 1 Un yariel -acetaminop 8-18 tablet by ity of hen (NORCO) 00:00: mouth [place] 5-325 mg 00 every 6 Medical tablet (six) Branch hours as needed for Pain (scale 7-10) for up to 7 doses. Indication s: acute pain HYDROcodone 2021- Yes 4647 1{tbl} Take 1 Un yariel -acetaminop 8-18 tablet by ity of hen (NORCO) 00:00: mouth [place] 5-325 mg 00 every 6 Medical tablet (six) Branch hours as needed for Pain (scale 7-10) for up to 7 doses. Indication s: acute pain HYDROcodone 2021-0 Yes 4647 1{tbl} Take 1 Un yariel -acetaminop 8-18 tablet by ity of hen (NORCO) 00:00: mouth [place] 5-325 mg 00 every 6 Medical tablet (six) Branch hours as needed for Pain (scale 7-10) for up to 7 doses. Indication s: acute pain clindamycin 2021-0 Yes [id number] Apply to Univers 1 % gel 8-04 area(s) 2 ity of 00:00: (two) [place] 00 times Medical daily. Branch clindamycin 2021-0 Yes [id number] Apply to Univers 1 % gel 8-04 area(s) 2 ity of 00:00: (two) [place] 00 times Medical daily. Branch clindamycin 2021-0 Yes [id number] Apply to Univers 1 % gel 8-04 area(s) 2 ity of 00:00: (two) [place] 00 times Medical daily. Branch valACYclovi 2021-0 Yes 500mg Take 500 U nivers r 500 mg 7-09 mg by ity of tablet 00:00: mouth in [place] 00 the Medical morning. Branch valACYclovi 2021-0 Yes 500mg Take 500 U nivers r 500 mg 7-09 mg by ity of tablet 00:00: mouth in [place] 00 the Medical morning. Branch valACYclovi 2021-0 Yes 500mg Take 500 U nivers r 500 mg 7-09 mg by ity of tablet 00:00: mouth in [place] 00 the Medical morning. Branch Vital Signs Vital Name Observation Time Observation Value Comments Source Systolic blood 2022-07-08 13:25:00 125 mm[Hg] Univer sity of pressure [facility] Diastolic blood 2022-07-08 13:25:00 79 mm[Hg] Unive rsity of [facility] Heart rate 2022-07-08 13:25:00 104 /min [facility] Respiratory rate 2022-07-08 13:25:00 18 /min [facility] Body height 2022-07-08 13:25:00 154.9 cm [facility] Body weight 2022-07-08 13:25:00 65.318 kg [facility] BMI 2022-07-08 13:25:00 27.21 kg/m2 [facility] Oxygen saturation in 2022-07-08 13:25:00 99 /min [facility] Arterial blood by [facility] Pulse oximetry Branch Procedures Procedure Date / Time Performed Performing Clinician [facility] e DISCLOSURE AND 2022-07-08 05:01:00 Doctor Unassigned, No Univer sity of [place] CONSENT, MEDICAL AND Name Medical [facility] SURGICAL PROCEDURES Encounters Start End Encounter Admission Attending Care Care Encounter Source Date/Time Date/Time Type Type Clinicians Facility Department ID 2022-07-22 2022-07-22 Nurse Nurse, [facility] [id number] [facility] 11:15:00 11:45:00 Visit Alin Chapa [id number] Dor[place] [id number] [place] FUCHS [id number] [address] 2022-07-22 2022-07-22 [facility] [id number] Univers 11:15:00 11:15:00 ALIN siegel [facility] 2022-07-22 2022-07-22 [facility] [id number] Univers 11:15:00 11:15:00 ALIN siegel [facility] 2022-07-08 2022-07-08 Office [facility] [id number] Univers 08:00:00 09:41:31 Visit Alin LARRYARIES [id number] i [place] [id number] [address] 2022-07-08 2022-07-08 [facility] [id number] Univers 08:00:00 09:41:31 ALIN siegel [facility] 2022-07-08 2022-07-08 [facility] [id number] Univers 08:00:00 08:00:00 ALIN siegel [facility] 2022-07-08 2022-07-08 Orders Doctor MARCELINA [id number] Univers 00:00:00 00:00:00 Only Unassigned, ALFREDO 350.1.13.10 ity of [place] [facility] 4.2.7.2.686 [place] as [id number] [address] 2022-06-24 2022-06-24 [facility] [id number] Univers 10:00:00 10:41:19 ALIN siegel [facility] 2022-06-24 2022-06-24 Office [facility] [id number] Univers 10:00:00 10:41:19 Visit Alin LARRYARIES 350.1.13.10 i [place] [id number] [address] 2022-06-24 2022-06-24 Orders Doctor MARCELINA [id number] Univers 00:00:00 00:00:00 Only Unassigned, ALFREDO 350.1.13.10 ity of [place] HOSPITAL 4.2.7.2.686 Charly as [id number] [facility] 009 Branch 2022-06-16 2022-06-16 Letter MARCELINA Basilio [id number] Univers 00:00:00 00:00:00 (Out) Lyn FUENTES 350.1.13.10 it y of HOSPITAL 4.2.7.2.686 [place] as [id number] [facility] 043 Branch 2022-06-11 2022-06-11 Orders Doctor MARCELINA [id number] Univers 00:00:00 00:00:00 Only Unassigned, ALFREDO 350.1.13.10 ity of [place] HOSPITAL 4.2.7.2.686 Ch[place] as [id number] [address] Results Test Description Test Time Test Comments Results Result Comments Source CT/NG, NAAT, URINE 2022-07-02 21:51:00 Test Item Value Reference Range Interpretation Comme nts GONORRHEA, NAAT NEGATIVE NEGATIVE IMPORT ANT NOTICE: SEE ANNOUNCEMENT AT (test code = [email or web address].[employer]/PickPark Note: 32039) Assay methodolo gy is nucleic acid amplification by transcriptio n mediated amplification (TMA) utilizing the A ptima Combo 2 Assay. CHLAMYDIA, NAAT NEGATIVE NEGATIVE IMPORT ANT NOTICE: SEE ANNOUNCEMENT AT (test code = [email or web address]://www.[employer] Note: 92551) Assay methodolo gy is nucleic acid amplification by transcriptio n mediated amplification (TMA) utilizing the A ptima Combo 2 Assay. UNLESS OTHERWISE INDIC ATED, ALL TESTING PERFORMED [facility] [address] [place] [address] CREDIT RATING INSPECTOR: ANAI REAL M.D. CLIA NUMBER [id number] [place] [id number] VAGINAL PATHOGENS DNA [id number] 14:10:07 Test Item Value Reference Range Interpretation Comments JONATHAN SPECIES (test code = ) NEGATIVE NEGATIVE G. VAGINALIS (test code = ) POSITIVE NEGATIVE A T. VAGINALIS (test code = ) NEGATIVE NEGATIVE HIV 1/2 4TH GEN, RFLX [id number] 06:55:51 Test Item Value Reference Range Interpretation Comments HIV 1/2 4TH GEN, RFLX CONF (test NON-REACTIVE NON-REACTIVE code = 3514) HEPATITIS PANEL, [id number] 06:55:51 Test Item Value Reference Range Interpretation Comments HEPATITIS A IgM (test NON-REACTIVE NON-REACTIVE code = 39829) HEPATITIS B CORE IgM NON-REACTIVE NON-REACTIVE (test code = 4644) HEPATITIS B SURF AG NON-REACTIVE NON-REACTIVE (test code = 2739) HEPATITIS C ANTIBODY NON-REACTIVE NON-REACTIVE (test code = 4675) INTERPRETATION (NOTE) Hepatitis A HEPATITIS A: (test code sero logy shows no = 2552) evidence of acu te hepatitis A. INTERPRETATION (NOTE) Hepatitis B HEPATITIS B: (test code sero logy shows no = 52146) evidence of acu te hepatitis B and no indication of exposure to hepatitis B vir us in the previous deric eight months. INTERPRETATION (NOTE) Hepatitis C HEPATITIS C: (test code sero logy shows no = 53861) evidence of exposure to hepatitisC viru s at this time. I t can take up to 12 months after exposure tothe hepatitis C vir us for antibodies to become detectab le in the blood in certain patient s. [id number] 04:42:33 Test Item Value Reference Range Interpretation Comments RPR RESULT (test code = NON-REACTIVE NON-REACTIVE 3501) RPR TITER (test code = 3500) NOT INDIC. TITER NOT INDIC. VAGINAL PATHOGENS DNA [id number] 15:52:52 Test Item Value Reference Range Interpretation Comments JONATHAN SPECIES (test POSITIVE NEGATIVE A code = ) G. VAGINALIS (test NEGATIVE NEGATIVE code = ) T. VAGINALIS (test NEGATIVE NEGATIVE UNLESS O THERWISE code = ) INDICATED, ALL TESTING PERFORMED [facility] [address] [place] [address] 4 LABORATORY DIRE CTOR: ANAI REAL M.D. CLIA NUMBER [id number] [facility] [place] [id number] VAGINAL PATHOGENS DNA [id number] 17:17:09 Test Item Value Reference Range Interpretation Comments JONATHAN SPECIES (test NEGATIVE NEGATIVE code = ) G. VAGINALIS (test POSITIVE NEGATIVE A code = ) T. VAGINALIS (test NEGATIVE NEGATIVE UNLESS O THERWISE code = ) INDICATED, ALL TESTING PERFORMED [facility] PATHOLOGY [facility]. [address] [place], [place] [address] 4 LABORATORY DIRE CTOR: ANAI REAL M.D. CLIA NUMBER [id number] [facility] [id number] PAP TEST, THINPREP, [id number] 14:40:14 Test Item Value Reference Range Interpretation Comments SOURCE: (test Cervical/Endoc code = 8001) ervical SLIDES: (test 1 code = 8011) LMP: (test code 05/18/2022 = 8021) SPECIMEN (NOTE) Satisfactory f or ADEQUACY: (test evaluation. Endocervical code = 08161) cells/transfor mation zone component present. INTERPRETATION: NILM/NO EPITH. (test code = ABNORMALITY;SE 27889) E BELOW ------- NEGATIVE FO R INTRAEPITHELIAL LESION OR MALIGNANCY ( NILM) --------- --------- --------- - ROAD BUILDER Anand : (test code = AVIVA Davis(ASCP) 8101) LOCATION: (test (NOTE) Specimens pr ocessed and code = 23196) interpreted at [facility], [address] [place] [address], , CLIA: [id number] CPT: (test code (NOTE) 11206 UNLESS OTHERWISE = 8140) INDICATED, COMP UTER AIDED AND CYTOTECHNOLOGIS T SCREENING PERFO RMED. The Pap test is a s creening test with an in herent, but low probabi lity of error. Your pat ient should be remin ded to consult you imm ediately if she experien lizbeth any suspicious sign s or symptoms, regar dless of her Pap test re sult. An alternate repor t format containing imag es or consolidated pr ior Pap history is avai lable as applicable. HPV HIGH RISK WITH GENOTYPE, [id number] 14:27:21 Test Item Value Reference Range Interpretation Comments HPV HIGH RISK INTERP NEGATIVE NEGATIVE (test code = 64284) HPV 16 (test code = NEGATIVE 92838) HPV 18 (test code = NEGATIVE 25815) HPV, HR, OTHER NEGATIVE Testing meth odology is GENOTYPES (test code real-ti me PCR utilizing = 60261) hydrolysis prob es with the [employer] 4800 system. The elvin t individually de tects genotypes 16 an d 18, as well as the oth er 12 high risk types (31,33,35,39,45 ,51,52,56 ,58,59,66,68). The expected result is negative. A neg ative result does not rule out the presence of HPV not included in the genotype set, a low leve l of infection or sp ecimen sampling error. UNLESS OTHERWISE INDIC ATED, ALL TESTING PERFORM [facility], [facility]. [address] [place] [address] LABORATORY DIRE CTOR: ANAI REAL M.D. VAUGHNIA NUMBER [id number] [facility] [place] [id number]
[2022-12-27] MEDS ORDERED: DOXYCYCLINE 100 MG CAP PO ONE (16:17)
[2022-12-27] MEDS ORDERED: HYDROCODONE/APAP 5/325 MG TAB ONE (16:17)
--- NOTE | 2022-12-27 17:20 | ER ---
Nurse's Notes [facility] Name: Mabel Galloway Age: 27 yrs Sex: Female : 1995 Arrival Date: 12/27/2022 Time: 14:01 Bed 9 Private MD: Diagnosis: Cutaneous abscess of left axilla;Otalgia, left ear Presentation: 12/27 15:14 Chief complaint: Patient states: Bilateral ear pain, worse on L side, cough, and ph abscess to L axilla. Coronavirus screen: Vaccine status: Patient reports being unvaccinated. Ebola Screen: No symptoms or risks identified at this time. Initial Sepsis Screen: Does the patient meet any 2 criteria? No. Patient's initial sepsis screen is negative. Does the patient have a suspected source of infection? No. Patient's initial sepsis screen is negative. Risk Assessment: Do you want to hurt yourself or someone else? Patient reports no desire to harm self or others. Onset of symptoms was December 27, 2022. 15:14 Method Of Arrival: Ambulatory ph 15:14 Acuity: DAVID 4 ph Triage Assessment: 15:16 General: Appears in no apparent distress. Behavior is calm, cooperative. Pain: ph Complains of pain in left axilla. EENT: Reports pain in left occipital area, left ear and right ear. Neuro: Level of Consciousness is awake, alert, obeys commands, Oriented to person, place, time, situation. 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 - Social history:: Smoking status: Patient reports the use of cigarette tobacco products, smokes one-half pack cigarettes per day. Screenin:00 [facility] ED Fall Risk Assessment (Adult) History of falling in the last 3 months, mb9 including since admission No falls in past 3 months (0 pts) Confusion or Disorientation No (0 pts) Intoxicated or Sedated No (0 pts) Impaired Gait No (0 pts) Mobility Assist Device Used No (0 pt) Altered Elimination No (0 pt) Score/Fall Risk Level 0 - 2 = Low Risk Oriented to surroundings, Maintained a safe environment. Abuse screen: Denies threats or abuse. Nutritional screening: No deficits noted. Tuberculosis screening: No symptoms or risk factors identified. Assessment: 16:00 Reassessment: pt brought to ER room. mb9 16:17 General: Appears comfortable, Behavior is calm, cooperative. Pain: Complains of pain in mb9 right ear and left ear and left axilla Pain does not radiate. Pain currently is 2 out of 10 on a pain scale. Quality of pain is described as aching. Neuro: Vang Agitation-Sedation Scale (RASS): 0 - Alert and Calm Level of Consciousness is awake, alert, obeys commands, Oriented to person, place, time, situation, Appropriate for age. Cardiovascular: Capillary refill Patient's skin is warm and dry. Respiratory: Airway is patent Respiratory effort is even, unlabored, Respiratory pattern is regular, symmetrical. GI: No signs and/or symptoms were reported involving the gastrointestinal system. EENT:. Derm: Skin is pink, warm \T\ dry. Abscess located on left axilla is nickel sized. Musculoskeletal: Range of motion: intact in all extremities. 17:20 Reassessment: No changes from previously documented assessment. Patient and/or family mb9 updated on plan of care and expected duration. Pain level reassessed. Patient is alert, oriented x 3, equal unlabored respirations, skin warm/dry/pink. Vital Signs: 15:14 BP 124 / 75; Pulse 92; Resp 18; Temp 98.1; Pulse Ox 100% on R/A; Weight 65.77 kg; ph Height 5 ft. 1 in. (154.94 cm); 16:18 BP 126 / 79; Pulse 84; Resp 18; Pulse Ox 100% ; mb9 15:14 Body Mass Index 27.40 (65.77 kg, 154.94 cm) ph ED Course: 14:01 Patient arrived in ED. rg4 14:04 Gita Trevizo FNP-C is [facility]. snw 14:04 Pricilla Mcclain MD is Attending Physician. snw 15:15 Triage completed. ph 15:16 Arm band placed on Patient placed in waiting room, Patient notified of wait time. ph 16:00 Placed in gown. Bed in low position. Call light in reach. Side rails up X 1. Client mb9 placed on continuous cardiac and pulse oximetry monitoring. NIBP monitoring applied. 16:11 Sun Geller, RN is Primary Nurse. mb9 16:19 No provider procedures requiring assistance completed. Patient did not have IV access mb9 during this emergency room visit. Administered Medications: 16:17 Drug: Doxycycline 100 mg Route: PO; mb9 17:21 Follow up: Response: No adverse reaction mb9 16:17 Drug: [place] (HYDROcodone-acetaminophen) 5 mg-325 mg 1 tabs Route: PO; mb9 17:21 Follow up: Response: No adverse reaction mb9 Medication: 17:20 VIS not applicable for this client. mb9 Outcome: 17:20 Discharge ordered by . lin 17:29 Discharged to home ambulatory. mb9 17:29 Condition: stable 17:29 Discharge instructions given to patient, Instructed on discharge instructions, follow up and referral plans. Demonstrated understanding of instructions, follow-up care, medications, Prescriptions given X 2. 17:31 Patient left the ED. mb9 Signatures: Gita Trevizo, GIANNI-C CANCELLATION CLERK-Enrriquew Yoon Johnson RN RN Cecile Salmeron rg4 Sun Geller, RN RN mb9
--- NOTE | 2022-12-27 17:20 | EDPHYS ---
Physician Documentation [facility] Name: Mabel Galloway Age: 27 yrs Sex: Female : 1995 Arrival Date: 12/27/2022 Time: 14:01 Bed 9 Private MD: ED Physician Pricilla Mcclain HPI: 12/27 17:55 This 27 yrs old Female presents to ER via Ambulatory with complaints of Abscess, Ear snw Pain. 17:55 The patient presents with an abscess of the left axilla. Description: The affected area snw is small, well demarcated, raised. Onset: The symptoms/episode began/occurred acutely. Associated signs and symptoms: The patient has no apparent associated signs or symptoms. Severity of symptoms: At their worst the symptoms were moderate, severe. The patient has experienced similar episodes in the past. The patient has not recently seen a physician. 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 - Social history:: Smoking status: Patient reports the use of cigarette tobacco products, smokes one-half pack cigarettes per day. ROS: 17:50 Constitutional: Negative for fever, chills, and weight loss, Eyes: Negative for injury, snw pain, redness, and discharge, Neck: Negative for injury, pain, and swelling, Cardiovascular: Negative for chest pain, palpitations, and edema, Respiratory: Negative for shortness of breath, cough, wheezing, and pleuritic chest pain, Abdomen/GI: Negative for abdominal pain, nausea, vomiting, diarrhea, and constipation, Back: Negative for injury and pain, : Negative for injury, bleeding, discharge, and swelling, MS/Extremity: Negative for injury and deformity, Neuro: Negative for headache, weakness, numbness, tingling, and seizure, Psych: Negative for depression, anxiety, suicide ideation, homicidal ideation, and hallucinations. 17:50 ENT: Positive for ear pain. 17:50 Skin: Positive for abscess, of the left axilla. Exam: 17:49 Constitutional: This is a well developed, well nourished patient who is awake, alert, snw and in no acute distress. Head/Face: Normocephalic, atraumatic. Eyes: Pupils equal round and reactive to light, extra-ocular motions intact. Lids and lashes normal. Conjunctiva and sclera are non-icteric and not injected. Cornea within normal limits. Periorbital areas with no swelling, redness, or edema. 17:49 Neck: Trachea midline, no thyromegaly or masses palpated, and no cervical lymphadenopathy. Supple, full range of motion without nuchal rigidity, or vertebral point tenderness. No Meningismus. Chest/axilla: Normal chest wall appearance and motion. Nontender with no deformity. No lesions are appreciated. Cardiovascular: Regular rate and rhythm with a normal S1 and S2. No gallops, murmurs, or rubs. Normal PMI, no JVD. No pulse deficits. Respiratory: Lungs have equal breath sounds bilaterally, clear to auscultation and percussion. No rales, rhonchi or wheezes noted. No increased work of breathing, no retractions or nasal flaring. Abdomen/GI: Soft, non-tender, with normal bowel sounds. No distension or tympany. No guarding or rebound. No evidence of tenderness throughout. Back: No spinal tenderness. No costovertebral tenderness. Full range of motion. MS/ Extremity: Pulses equal, no cyanosis. Neurovascular intact. Full, normal range of motion. Neuro: Awake and alert, GCS 15, oriented to person, place, time, and situation. Cranial nerves II-XII grossly intact. Motor strength 5/5 in all extremities. Sensory grossly intact. Cerebellar exam normal. Normal gait. Psych: Awake, alert, with orientation to person, place and time. Behavior, mood, and affect are within normal limits. 17:49 ENT: Ear canal(s): are normal, TM's: are normal, Nose: is normal, Mouth: is normal, Posterior pharynx: erythema, that is mild, Voice: is normal. 17:49 Skin: Appearance: normal except for affected area, abscess, that is moderate sized, of the left axilla, pt with scarring x 2 from previous abscess, called her Surgeon who will see her tomorrow. . Vital Signs: 15:14 BP 124 / 75; Pulse 92; Resp 18; Temp 98.1; Pulse Ox 100% on R/A; Weight 65.77 kg; ph Height 5 ft. 1 in. (154.94 cm); 16:18 BP 126 / 79; Pulse 84; Resp 18; Pulse Ox 100% ; mb9 15:14 Body Mass Index 27.40 (65.77 kg, 154.94 cm) ph MDM: 16:00 Patient medically screened. snw 17:51 Differential diagnosis: abscess, OM. Data reviewed: vital signs, nurses notes. I snw considered the following discharge prescriptions or medication management in the emergency department Medications were administered in the Emergency Department. See MAR. Counseling: I had a detailed discussion with the patient and/or guardian regarding: the historical points, exam findings, and any diagnostic results supporting the discharge/admit diagnosis, the need for outpatient follow up, to return to the emergency department if symptoms worsen or persist or if there are any questions or concerns that arise at home. Special discussion: Based on the history and exam findings, there is no indication for further emergent testing or inpatient evaluation. I discussed with the patient/guardian the need to see the general surgeon for further evaluation of the symptoms. ED course: Pt has appt in the am with Surgeon that did I\T\D of area before. Administered Medications: 16:17 Drug: Doxycycline 100 mg Route: PO; mb9 17:21 Follow up: Response: No adverse reaction mb9 16:17 Drug: Weems (HYDROcodone-acetaminophen) 5 mg-325 mg 1 tabs Route: PO; mb9 17:21 Follow up: Response: No adverse reaction mb9 Disposition Summary: 12/27/22 17:20 Discharge Ordered Location: Home snw Condition: Stable snw Diagnosis - Cutaneous abscess of left axilla snw - Otalgia, left ear snw Followup: snw - With: Emergency Department - When: As needed - Reason: Worsening of condition Followup: snw - With: Private Physician - When: 1 - 2 days - Reason: Recheck today's complaints, Continuance of care, Re-evaluation by your physician Discharge Instructions: - Skin Abscess snw - Earache, Adult snw - Discharge Summary Sheet mb9 Forms: - Medication Reconciliation Form snw - Thank You Letter snw - Antibiotic Education snw - Prescription Opioid Use snw - Work release form mb9 Prescriptions: - Mobic 7.5 mg Oral Tablet - take 1 tablet by ORAL route once daily take with food; 20 tablet; Refills: 0, snw Product Selection Permitted - Doxycycline Hyclate 100 mg Oral Tablet - take 1 tablet by ORAL route every 12 hours; 20 tablet; Refills: 0, Product snw Selection Permitted Signatures: Gita Trevizo FNP-C FNP-Yoon Mcgarry, RN RN Sun Geller RN RN mb9
[2022-12-27 18:34] VITALS: TEMP 98.1; O2SAT 100
[2022-12-27 18:35] VITALS: BP 126/79
== END 2022-12-27 17:31 | disposition home or self-care (01) ==
LOC: ER 13:59
DX: L02.412 Cutaneous abscess of left axilla (principal); H92.02 Otalgia, left ear; F17.210 Nicotine dependence, cigarettes, uncomplicated
CPT/HCPCS: 99283